=== PATIENT | female | born 1955 | race Caucasian/White ===

== ENCOUNTER 2017-07-14 08:15 | Outpatient (CLI) | payer BC | END 2017-07-14 08:16 | disposition home or self-care (01) | LOC: BICMAMMO 08:15 | PROVIDERS: ATTEND Family Medicine | DX: Z12.31 Encounter for screening mammogram for malignant neoplasm of breast (principal) | CPT/HCPCS: 77063; 77067 ==

== ENCOUNTER 2018-07-15 07:49 | Outpatient (CLI) | payer MEDICARE, BC ==
--- NOTE | 2018-07-15 14:06 | BD ---
DEXA DENSITOMETRY: INDICATIONS: Postmenopausal osteoporosis screening. FINDINGS: LUMBAR SPINE BMD (g/cm2) T-SCORE L1 0.785 -1.9 L2 0.824 -1.9 L3 0.891 -1.8 L4 0.990 -0.6 TOTAL 0.884 -1.5 FEMORAL NECK DENSITY 0.683 -1.5 TOTAL 0.824 -1.0 IMPRESSION: The bone mineral density of the lumbar spine and femoral neck both indicate osteopenia. TEN YEAR FRACTURE RISK: Major osteoporotic fracture: 13% Hip fracture: 1.5% POS: [facility]
== END 2018-07-15 07:50 | disposition home or self-care (01) ==
LOC: BICMAMMO 07:49
PROVIDERS: ATTEND Family Medicine
DX: Z13.820 Encounter for screening for osteoporosis (principal); M85.859 Other specified disorders of bone density and structure, unspecified thigh; M85.88 Other specified disorders of bone density and structure, other site
CPT/HCPCS: 77080

== ENCOUNTER 2018-07-19 12:45 | Outpatient (CLI) | payer MEDICARE, BC ==
--- NOTE | 2018-07-19 13:16 | MMO ---
Bilateral MAMMO Bilat Diag [facility]. CLINICAL HISTORY: Patient is 63 years old and is seen for diagnostic exam and pain in the right breast. The patient has no family history of breast cancer. The patient has no personal history of cancer. The patient has a history of bilateral Implants in 1987 - replaced implants and bilateral Implants in 2007. VIEWS: The views performed were: bilateral craniocaudal with tomosynthesis; bilateral mediolateral oblique with tomosynthesis; bilateral mediolateral; and bilateral Implant displaced. FILMS COMPARED: The present examination has been compared to prior imaging studies performed at [facility] on 12/22/2007, 06/29/2008, 06/13/2015, 06/17/2016 and 07/14/2017. MAMMOGRAM FINDINGS: The breasts are heterogeneously dense, which could obscure a lesion on mammography. There are no suspicious masses, suspicious calcifications, or new areas of architectural distortion. IMPRESSION: THERE IS NO MAMMOGRAPHIC EVIDENCE OF MALIGNANCY. A ROUTINE FOLLOW-UP MAMMOGRAM IN 1 YEAR IS RECOMMENDED. THE RESULTS OF THIS EXAM WERE SENT TO THE PATIENT. ACR BI-RADS Category 1 - Negative MAMMOGRAPHY NOTE: 1. A negative mammogram report should not delay a biopsy if a dominant of clinically suspicious mass is present. 2. Approximately 10% to 15% of breast cancers are not detected by mammography. 3. Adenosis and dense breasts may obscure an underlying neoplasm.
== END 2018-07-19 12:46 | disposition home or self-care (01) ==
LOC: BICMAMMO 12:45
PROVIDERS: ATTEND Family Medicine
DX: N64.4 Mastodynia (principal)
CPT/HCPCS: 77066; G0279

== ENCOUNTER 2019-02-07 15:23 | Outpatient (CLI) | payer MEDICARE, BC ==
--- NOTE | 2019-02-07 15:39 | RAD ---
EXAM: Chest Two Views 02/07/2019 3:35 PM HISTORY: Dyspnea COMPARISON: None FINDINGS: Heart: Normal in size and contour. Pulmonary vessels: Normal. Costophrenic angles: Clear. Lungs: The lungs are hyperexpanded but clear Pneumothorax: None. Osseous structures:There is an age-indeterminate mild superior endplate compression fracture of T7. Additional findings: None. IMPRESSION: Lung hyperexpansion. Findings may be related to obstructive pulmonary disease. No airspace consolidat ion Age indeterminate mild wedge compression fracture of T7. If clinically indicated further evaluation w ith a bone scan may be helpful for additional characterization.
== END 2019-02-07 15:24 | disposition home or self-care (01) ==
LOC: BICRAD 15:23
PROVIDERS: ATTEND Family Medicine
DX: R06.02 Shortness of breath (principal); R91.8 Other nonspecific abnormal finding of lung field; M48.54XA Collapsed vertebra, not elsewhere classified, thoracic region, initial encounter for fracture
CPT/HCPCS: 71046

== ENCOUNTER 2020-02-06 14:53 | Outpatient (CLI) | payer MEDICARE, BC, OTHER ==
--- NOTE | 2020-02-06 15:44 | MMO ---
Bilateral MAMMO Bilat Screen [facility] CLINICAL HISTORY: Patient is 64 years old and is seen for screening. The patient has no family history of breast cancer. The patient has no personal history of cancer. The patient has a history of bilateral Implants in 1987 - replaced implants and bilateral Implants in 2007. VIEWS: The views performed were: bilateral craniocaudal with tomosynthesis and bilateral mediolateral oblique with tomosynthesis. FILMS COMPARED: The present examination has been compared to prior imaging studies performed at [facility] on 06/13/2015, 06/17/2016, 07/14/2017 and 07/19/2018. This study has been interpreted with the assistance of computer-aided detection. MAMMOGRAM FINDINGS: The breasts are heterogeneously dense, which could obscure a lesion on mammography. There are no suspicious masses, suspicious calcifications, or new areas of architectural distortion. Bilateral implants are stable. IMPRESSION: THERE IS NO MAMMOGRAPHIC EVIDENCE OF MALIGNANCY. A ROUTINE FOLLOW-UP MAMMOGRAM IN 1 YEAR IS RECOMMENDED. THE RESULTS OF THIS EXAM WERE SENT TO THE PATIENT. ACR BI-RADS Category 1 - Negative MAMMOGRAPHY NOTE: 1. A negative mammogram report should not delay a biopsy if a dominant of clinically suspicious mass is present. 2. Approximately 10% to 15% of breast cancers are not detected by mammography. 3. Adenosis and dense breasts may obscure an underlying neoplasm. Reported by: ZACHARY POWELL MD Electonically Signed: [id number]
== END 2020-02-06 14:54 | disposition home or self-care (01) ==
LOC: BICMAMMO 14:53
PROVIDERS: ATTEND Family Medicine
DX: Z12.31 Encounter for screening mammogram for malignant neoplasm of breast (principal); Z98.82 Breast implant status
CPT/HCPCS: 77063; 77067

== ENCOUNTER 2021-02-07 10:14 | Outpatient (CLI) | payer MEDICARE, BC, OTHER | END 2021-02-07 10:15 | disposition home or self-care (01) | LOC: BICMAMMO 10:14 | PROVIDERS: ATTEND Family Medicine | DX: Z12.31 Encounter for screening mammogram for malignant neoplasm of breast (principal); Z98.82 Breast implant status | CPT/HCPCS: 77063; 77067 ==

== ENCOUNTER 2021-07-10 07:46 | Outpatient (CLI) | payer OTHER, BC | END 2021-07-10 07:47 | disposition home or self-care (01) | LOC: BICMAMMO 07:46 | PROVIDERS: ATTEND Family Medicine | DX: M85.89 Other specified disorders of bone density and structure, multiple sites (principal); M81.0 Age-related osteoporosis without current pathological fracture | CPT/HCPCS: 77080 ==

== ENCOUNTER 2022-02-24 13:42 | Emergency (ER) | payer OTHER, BC ==
[2022-02-24 14:27] LABS: #Basophils 0.1 thou/uL (0.0-0.2); #Eosinphils 0.2 thou/uL (0.0-0.7); #Lymphocytes 3.8 thou/uL (1.20-3.40); #Monocytes 0.7 thou/uL (0.11-0.59); #Neutrophils 5.1 thou/uL (1.40-6.50); %Basophils 0.9 % (0.0-1.0); %Eosinophils 1.8 % (0.0-10.0); %Lymphocytes 38.3 % (21.0-51.0); %Monocytes 6.9 % (0.0-10.0); Hemoglobin 14.4 g/dL (12.0-16.0); Mean Corpuscular HGB CONC 33.6 g/dL (32.0-36.0); Mean Corpuscular Hemoglobin 32.7 pg (27.0-31.0); Mean Corpuscular Volume 97.4 fl (78.0-98.0); Mean Platelet Volume 8.7 fL (7.4-10.4); Platelet Count 285 10x3/uL (130-400); RBC Distribution Width 10.9 % (11.5-14.5); Red Blood Cell (RBC) Count 4.39 mill/uL (4.20-5.40); White Blood Cell (WBC) Count 9.8 10x3/uL (4.8-10.8)
[2022-02-24 14:33] LABS: ALT (SGPT) 17 U/L (8-55); AST (SGOT) 21 U/L (5-34); Albumin 4.4 g/dL (3.4-4.8); Alkaline Phosphatase 57 U/L (40-110); Anion Gap 15 mmol/L (10-20); BUN (Urea Nitrogen) 17 mg/dL (9.8-20.1); Bilirubin, Total 0.7 mg/dL (0.2-1.2); Calc. Creatinine Clearance 0 mL/min (70-130); Calcium 9.7 mg/dL (7.8-10.44); Carbon Dioxide 28 mmol/L (23-31); Chloride 102 mmol/L (98-107); Estimated GFR 61; Globulin 3.2 g/dL (2.4-3.5); Glucose 100 mg/dL (80-115); Lipase 16 U/L (8-78); Potassium 3.6 mmol/L (3.5-5.1); Protein, Total 7.6 g/dL (5.8-8.1); Sodium 141 mmol/L (136-145)
[2022-02-24 15:52] LABS: Bacteria/HPF None Seen HPF (None Seen); Bilirubin Negative (Negative); Blood, Urine Negative (Negative); Clarity Clear (Clear); Glucose, Urine (Dipstick) Normal (Negative); Ketone, Urine Negative (Negative); Leukocyte 250 Leu/uL (Negative); Nitrite Negative (Negative); Protein, Urine (Dipstick) Negative (Neg-Trace); RBC/HPF 0-3 HPF (0-3); Specific Gravity, Urine 1.007 (1.002-1.036); Squamous Epithelial 0-3 HPF (0-3); Urobilinogen Normal mg/dL (Less than 2); WBC/HPF 0-3 HPF (0-3); pH, Urine 7.5 (5.0-9.0)
== END 2022-02-24 16:45 | disposition home or self-care (01) ==
LOC: ERS 13:42
DX: R07.89 Other chest pain (principal); I10 Essential (primary) hypertension; Z79.899 Other long term (current) drug therapy
CPT/HCPCS: 36415; 71046; 80053; 81003; 81015; 83690; 84484; 85025; 93005; 94760

== ENCOUNTER 2022-08-28 10:22 | Outpatient (CLI) | payer OTHER, BC | END 2022-08-28 10:23 | disposition home or self-care (01) | LOC: BICMAMMO 10:22 | PROVIDERS: ATTEND Family Medicine | DX: Z12.31 Encounter for screening mammogram for malignant neoplasm of breast (principal); N64.89 Other specified disorders of breast; Z80.3 Family history of malignant neoplasm of breast; Z98.82 Breast implant status | CPT/HCPCS: 77063; 77067 ==

== ENCOUNTER 2022-09-11 09:57 | Outpatient (CLI) | payer OTHER, BC | END 2022-09-11 09:58 | disposition home or self-care (01) | LOC: BICMAMMO 09:57 | PROVIDERS: ATTEND Family Medicine | DX: N64.89 Other specified disorders of breast (principal) | CPT/HCPCS: 76642; 77065; G0279 ==

== ENCOUNTER 2022-09-30 08:33 | Outpatient (CLI) | payer OTHER, BC | END 2022-09-30 08:34 | disposition home or self-care (01) | LOC: BICMRI 08:33 | PROVIDERS: ATTEND Family Medicine | DX: R92.8 Other abnormal and inconclusive findings on diagnostic imaging of breast (principal); R92.2 Inconclusive mammogram; Z98.82 Breast implant status | CPT/HCPCS: 82565; C8908; A9577 ==

== ENCOUNTER 2023-09-01 07:39 | Outpatient (CLI) | payer OTHER, BC | END 2023-09-01 07:40 | disposition home or self-care (01) | LOC: BICMAMMO 07:39 | PROVIDERS: ATTEND Family Medicine | DX: Z12.31 Encounter for screening mammogram for malignant neoplasm of breast (principal); Z80.3 Family history of malignant neoplasm of breast; Z98.82 Breast implant status; Z98.890 Other specified postprocedural states | CPT/HCPCS: 77063; 77067 ==